=== PATIENT | male | born 1985 | race Hispanic/Latino ===

== ENCOUNTER 2023-05-09 19:41 | Emergency (ER) | payer BC, SELFPAY ==
[2023-05-09 20:29] LABS: #Basophils 0.06 10x3/uL (0.0-0.2); %Basophils 0.7 % (0.0-1.0); %Eosinophils 5.6 % (0.0-10.0); %Lymphocytes 33.5 % (21.0-51.0); %Monocytes 7.4 % (0.0-10.0); %Neutrophils 52.5 % (42.0-75.0); Hematocrit 41.9 % (42.0-52.0); Hemoglobin 14.1 g/dL (14.0-18.0); Mean Corpuscular HGB CONC 33.7 g/dL (32.0-36.0); Mean Corpuscular Hemoglobin 30.5 pg (27.0-31.0); Mean Corpuscular Volume 90.5 fL (78.0-98.0); Mean Platelet Volume 8.5 fL (7.4-10.4); Platelet Count 291 10x3/uL (130-400); RBC Distribution Width 13.2 % (11.5-14.5); Red Blood Cell (RBC) Count 4.63 mill/uL (4.70-6.10)
[2023-05-09 20:46] LABS: ALT (SGPT) 24 U/L (8-55); AST (SGOT) 21 U/L (5-34); Albumin 4.2 g/dL (3.5-5.0); Alkaline Phosphatase 83 U/L (40-110); Anion Gap 13 mmol/L (10-20); BUN (Urea Nitrogen) 13 mg/dL (8.9-20.6); Bilirubin, Total 0.3 mg/dL (0.2-1.2); Calc. Creatinine Clearance 0 mL/min (70-130); Calcium 9.5 mg/dL (7.8-10.44); Carbon Dioxide 22 mmol/L (22-29); Chloride 106 mmol/L (98-107); Estimated GFR 116; Globulin 3.2 g/dL (2.4-3.5); Glucose 115 mg/dL (70-105); Potassium 3.9 mmol/L (3.5-5.1); Protein, Total 7.4 g/dL (6.0-8.3); Sodium 137 mmol/L (136-145)
[2023-05-09 20:50] LABS: Troponin I Less than 0.010 ng/mL (< 0.028)
== END 2023-05-09 22:26 | disposition home or self-care (01) ==
LOC: ERS 19:41
DX: G56.02 Carpal tunnel syndrome, left upper limb (principal); F17.290 Nicotine dependence, other tobacco product, uncomplicated; F17.210 Nicotine dependence, cigarettes, uncomplicated
CPT/HCPCS: 70450; 80053; 83880; 84484; 85025; 93005

== ENCOUNTER 2023-10-28 06:35 | Inpatient (IN) | payer SELFPAY ==
[2023-10-28 07:15] LABS: #Basophils 0.04 10x3/uL (0.0-0.2); %Basophils 0.3 % (0.0-1.0); %Eosinophils 0.5 % (0.0-10.0); %Lymphocytes 10.5 % (21.0-51.0); %Monocytes 5.6 % (0.0-10.0); %Neutrophils 82.5 % (42.0-75.0); Hematocrit 39.4 % (42.0-52.0); Hemoglobin 12.9 g/dL (14.0-18.0); Mean Corpuscular HGB CONC 32.7 g/dL (32.0-36.0); Mean Corpuscular Hemoglobin 29.7 pg (27.0-31.0); Mean Corpuscular Volume 90.8 fL (78.0-98.0); Mean Platelet Volume 8.4 fL (7.4-10.4); Platelet Count 279 10x3/uL (130-400); RBC Distribution Width 12.9 % (11.5-14.5); Red Blood Cell (RBC) Count 4.34 mill/uL (4.70-6.10)
[2023-10-28] MEDS ORDERED: Aspirin 325 MG TAB ONE (07:25)
[2023-10-28 07:46] LABS: ALT (SGPT) 108 U/L (8-55); AST (SGOT) 113 U/L (5-34); Albumin 3.5 g/dL (3.5-5.0); Alkaline Phosphatase 82 U/L (40-110); Anion Gap 16 mmol/L (10-20); BUN (Urea Nitrogen) 12 mg/dL (8.9-20.6); Bilirubin, Total 0.6 mg/dL (0.2-1.2); Calc. Creatinine Clearance 0 mL/min (70-130); Calcium 8.9 mg/dL (7.8-10.44); Carbon Dioxide 19 mmol/L (22-29); Chloride 109 mmol/L (98-107); Estimated GFR 107; Globulin 3.3 g/dL (2.4-3.5); Glucose 113 mg/dL (70-105); Lipase 15 U/L (8-78); Magnesium 2.1 mg/dL (1.6-2.6); Potassium 4.4 mmol/L (3.5-5.1); Protein, Total 6.8 g/dL (6.0-8.3); Sodium 140 mmol/L (136-145)
[2023-10-28] MEDS ORDERED: Lorazepam 2 MG/ML VIAL ONE (09:16)
[2023-10-28 09:21] LABS: Influenza A by NAA Not Detected (NotDetected); Influenza B by NAA Not Detected (NotDetected); SARS-CoV-2 NAA Rapid Test Not Detected (NotDetected)
[2023-10-28] MEDS ORDERED: Iopamidol-370 76% 500 ML MDV (1 ML CHARGE) ONE (10:26)
[2023-10-28 11:41] LABS: Prothrombin Time 13.1 sec (12.0-14.7)
[2023-10-28 11:43] LABS: D-Dimer Test 1.09 mcg/mL (0.27-0.43)
[2023-10-28] MEDS ORDERED: Acetaminophen 325 MG TAB PO PRN (11:51)
[2023-10-28] MEDS ORDERED: Communication Order-Pharmacy FS PRN (11:52)
[2023-10-28] MEDS ORDERED: Heparin 5,000 UNITS/ML VIAL ONE (11:53)
[2023-10-28] MEDS ORDERED: Heparin 25,000 units/D5W 0 ML ONE (11:53)
[2023-10-28] MEDS ORDERED: Heparin 10,000 UNITS/ 10 ML VIAL SLOW IVP SCH (12:00)
[2023-10-28] MEDS ORDERED: Heparin 25,000 units/D5W 500 ML IVPB SCH (12:00)
[2023-10-28] MEDS ORDERED: Labetalol HCl 100 MG/20 ML VIAL SLOW IVP PRN (12:06)
[2023-10-28] MEDS ORDERED: Enoxaparin 60 MG (0.6 mL) SYRINGE ONE (13:01)
[2023-10-28 14:03] LABS: Cardiolipin IgA Ab 2.9 APL-U/mL (<14 Negative); Cardiolipin IgG Ab 2.5 GPL-U/mL (<10 Negative); Cardiolipin IgM Ab 2.2 MPL-U/mL (<10 Negative); EliA APS New Method **** NEW METHOD ****
[2023-10-28] MEDS ORDERED: Ipratropium Bromide 2.5 ml Neb NEB PRN (14:08)
[2023-10-28] MEDS ORDERED: Ondansetron ODT 4 MG TAB PO PRN (17:57)
[2023-10-28] MEDS ORDERED: Lorazepam 2 MG/ML VIAL IM PRN (17:57)
[2023-10-28] MEDS ORDERED: Lorazepam 1 MG TAB PO PRN (18:00)
[2023-10-28] MEDS ORDERED: Electrolyte Replacement Protocol 1 EACH FS SCH (18:00)
[2023-10-28] MEDS ORDERED: Dexmedetomidine In 0.9 % NaCl 100 ML IVPB SCH (18:00)
[2023-10-28] MEDS: Dexmedetomidine In 0.9 % NaCl 100 ML IV SCH (18:15)
[2023-10-28] MEDS: Thiamine HCl 200 MG/2 ML VIAL SLOW IVP SCH (18:19)
[2023-10-28] MEDS: Lorazepam 1 MG TAB PO SCH (18:19)
[2023-10-28 18:23] LABS: Actual Bicarbonate (HCO3a) 22.7 mEq/L (22-28); Base Excess (BEa) -2.9 mEq/L (-2.0 to +3.0); CO2 Tension 42.2 mmHg (35.0-45.0); Calcium, Ionized (arterial) 1.18 mmol/L (1.12-1.30); Carboxyhemoglobin (COHb) 0.4 gm% (0.0-3.0); Hematocrit-ABG 38 % (42.0-52.0); Hemoglobin (Hb) 12.9 g/dL (14.0-18.0); O2 Tension (PaO2), arterial 95.5 mmHg (80.0-100.0); Potassium - ABG Lab 3.82 mmol/L (3.70-5.30); pH, Arterial 7.348 (7.35-7.45)
[2023-10-28 18:24] LABS: Puncture Site Right Radial artery
[2023-10-28] MEDS ORDERED: Thiamine 100 MG TAB PO SCH (21:00)
[2023-10-28] MEDS: Furosemide 20 MG (2 mL) VIAL SLOW IVP SCH (21:07)
[2023-10-28 22:38] LABS: Bacteria/HPF None Seen HPF (None Seen); Bilirubin Negative (Negative); Blood, Urine Negative (Negative); Clarity Clear (Clear); Glucose, Urine (Dipstick) Normal (Negative); Ketone, Urine Negative (Negative); Leukocyte 25 Leu/uL (Negative); Nitrite Negative (Negative); Protein, Urine (Dipstick) Negative (Neg-Trace); RBC/HPF 0-3 HPF (0-3); Squamous Epithelial 0-3 HPF (0-3); Urobilinogen Normal mg/dL (Less than 2); WBC/HPF 0-3 HPF (0-3)
[2023-10-28 22:43] LABS: Amphetamine Not Detected (NotDetected); Barbiturates Screen Not Detected (NotDetected); Benzodiazepine Screen Detected (NotDetected); Cocaine Metabolite Screen Detected (NotDetected); Methadone Not Detected (NotDetected); Methamphetamine Not Detected (NotDetected); Opiate Screen Not Detected (NotDetected); Oxycodone Screen Not Detected (NotDetected); Phencyclidine (PCP) Not Detected (NotDetected); THC/Cannabinoid Screen Detected (NotDetected); Tricyclic Screen Not Detected (NotDetected)
[2023-10-29] MEDS: Multivit, Therapeutic 1 TAB PO SCH (00:01)
[2023-10-29] MEDS: Famotidine 20 MG TAB PO SCH (00:01)
[2023-10-29] MEDS: Cyanocobalamin (Vitamin B-12) 1,000 MCG TAB PO SCH (00:01)
[2023-10-29] MEDS: Folic Acid 1 MG TAB PO SCH (00:01)
[2023-10-29] MEDS: Enoxaparin 120 MG/0.8 ML SYRINGE SC SCH ×2 (00:29→12:03)
[2023-10-29 05:06] LABS: Hematocrit 38.6 % (42.0-52.0); Hemoglobin 12.8 g/dL (14.0-18.0); Platelet Count 279 10x3/uL (130-400)
[2023-10-29 05:16] LABS: ALT (SGPT) 71 U/L (8-55); AST (SGOT) 31 U/L (5-34); Alkaline Phosphatase 77 U/L (40-110); Anion Gap 15 mmol/L (10-20); BUN (Urea Nitrogen) 13 mg/dL (8.9-20.6); Bilirubin, Total 1.4 mg/dL (0.2-1.2); Calc. Creatinine Clearance 196 mL/min (70-130); Calcium 8.5 mg/dL (7.8-10.44); Carbon Dioxide 20 mmol/L (22-29); Chloride 105 mmol/L (98-107); Estimated GFR 110; Globulin 3.4 g/dL (2.4-3.5); Glucose 139 mg/dL (70-105); Potassium 3.7 mmol/L (3.5-5.1); Protein, Total 6.4 g/dL (6.0-8.3); Sodium 136 mmol/L (136-145)
[2023-10-29] MEDS: Potassium Chloride 10 MEQ TAB PO SCH (08:37)
[2023-10-29] MEDS: Furosemide 20 MG (2 mL) VIAL SLOW IVP SCH ×2 (08:38→13:48)
[2023-10-29] MEDS: Magnesium 2 GM/50 ML(in water) 2 GM in Premix 1 BAG IVPB SCH (08:38)
[2023-10-29] MEDS ORDERED: Folic Acid 1 MG TAB PO SCH (09:00)
[2023-10-29] MEDS ORDERED: Multivit, Therapeutic 1 TAB PO SCH (09:00)
[2023-10-30 05:03] LABS: Hematocrit 38.2 % (42.0-52.0); Hemoglobin 12.5 g/dL (14.0-18.0); Mean Corpuscular HGB CONC 32.7 g/dL (32.0-36.0); Mean Corpuscular Hemoglobin 29.3 pg (27.0-31.0); Mean Corpuscular Volume 89.7 fL (78.0-98.0); Platelet Count 271 10x3/uL (130-400); Red Blood Cell (RBC) Count 4.26 mill/uL (4.70-6.10)
[2023-10-30 05:24] LABS: Anion Gap 12 mmol/L (10-20); BUN (Urea Nitrogen) 16 mg/dL (8.9-20.6); Calc. Creatinine Clearance 168 mL/min (70-130); Calcium 8.4 mg/dL (7.8-10.44); Carbon Dioxide 25 mmol/L (22-29); Chloride 104 mmol/L (98-107); Estimated GFR 92; Glucose 100 mg/dL (70-105); Sodium 137 mmol/L (136-145)
[2023-10-30] MEDS: Carvedilol 3.125 MG TAB PO SCH (08:30)
[2023-10-30] MEDS: Lorazepam 1 MG TAB PO PRN (08:48)
[2023-10-30] MEDS: Enoxaparin 120 MG/0.8 ML SYRINGE SC SCH (13:45)
[2023-10-30] MEDS: Acetaminophen 325 MG TAB PO PRN (13:59)
[2023-10-30] MEDS: Lorazepam 0.5 MG TAB PO SCH (17:35)
[2023-10-30] MEDS ORDERED: Lorazepam 1 MG TAB PO PRN (18:00)
[2023-10-30] MEDS: traMADol HCl 50 MG TAB PO PRN (20:08)
[2023-10-31 06:04] LABS: Hematocrit 37.9 % (42.0-52.0); Hemoglobin 12.6 g/dL (14.0-18.0); Platelet Count 261 10x3/uL (130-400)
[2023-10-31] MEDS ORDERED: Communication Order-Pharmacy FS SCH (07:39)
[2023-10-31] MEDS: Carvedilol 3.125 MG TAB PO SCH (08:32)
[2023-10-31] MEDS: Apixaban 5 MG TAB PO SCH (08:34)
[2023-10-31] MEDS ORDERED: Apixaban 5 MG TAB PO SCH (09:00)
[2023-10-31 09:05] LABS: Hematocrit 37.2 % (42.0-52.0); Hemoglobin 12.5 g/dL (14.0-18.0); Platelet Count 278 10x3/uL (130-400)
[2023-10-31] MEDS: Methocarbamol 500 MG TAB PO PRN (12:32)
[2023-10-31] MEDS ORDERED: Docusate 100 MG CAP PO PRN (14:48)
[2023-10-31] MEDS ORDERED: Polyethylene Glycol 3350 17 GM Packet PO PRN (14:48)
[2023-10-31] MEDS: Thiamine 100 MG TAB PO SCH (17:13)
[2023-10-31] MEDS ORDERED: Lorazepam 0.5 MG TAB PO PRN (18:00)
[2023-10-31 18:30] VITALS: BMI 37.6
[2023-11-01 04:39] LABS: Cardiac Risk 4.4 (Less than 4.5)
[2023-11-01] MEDS: traZODone HCl 50 MG TAB PO PRN (04:57)
[2023-11-01] MEDS: Furosemide 40 MG TAB PO SCH (09:26)
[2023-11-01] MEDS: Potassium Chloride 10 MEQ TAB PO SCH (09:27)
[2023-11-01] MEDS ORDERED: Albuterol 2.5 MG (3 mL) NEB NEB PRN (11:02)
[2023-11-01 12:57] VITALS: BP 126/88; TEMP 97.9
[2023-11-03 17:38] LABS: Activated Protein C Resistance 2.5 ratio (.)
[2023-11-07] MEDS ORDERED: Apixaban 5 MG TAB PO SCH (09:00)
== END 2023-11-01 17:47 | disposition home or self-care (01) | DRG 175 ==
LOC: ERS 06:35 → ERHOLD 11:15 → IMCU/EMU 16:43 → 2SW 10-31 13:24
PROVIDERS: ADMIT Internal Medicine; ATTEND Internal Medicine
PROC: 4A033R1 Measurement of Arterial Saturation, Peripheral, Percutaneous Approach (ICD-10-PCS; principal; 2023-10-28)
PROC: 5A0945A Assistance with Respiratory Ventilation, 24-96 Consecutive Hours, High Flow/Velocity Cannula (ICD-10-PCS; 2023-10-28)
DX: I26.99 Other pulmonary embolism without acute cor pulmonale (principal); I50.23 Acute on chronic systolic (congestive) heart failure; J96.01 Acute respiratory failure with hypoxia; I42.0 Dilated cardiomyopathy; F19.10 Other psychoactive substance abuse, uncomplicated; Z88.0 Allergy status to penicillin; F17.290 Nicotine dependence, other tobacco product, uncomplicated; Z90.89 Acquired absence of other organs; Z82.49 Family history of ischemic heart disease and other diseases of the circulatory system; E66.01 Morbid (severe) obesity due to excess calories; Z68.37 Body mass index [BMI] 37.0-37.9, adult; F14.10 Cocaine abuse, uncomplicated; F10.20 Alcohol dependence, uncomplicated; Z79.01 Long term (current) use of anticoagulants; I34.0 Nonrheumatic mitral (valve) insufficiency
CPT/HCPCS: 36415; 36600; 71045; 71275; 80048; 80053; 80061; 80306; 81001; 82805; 83090; 83690; 83735; 83880; 84484; 85014; 85018; 85025; 85027; 85049; 85300; 85303; 85306; 85307; 85598; 86147; 87040; 93005; 93306; 93970; 94760; 96374; J1644; J1650; J1940; J2060; J3411; J3475; Q9967

== ENCOUNTER 2023-11-03 03:05 | Inpatient (IN) | payer OTHER, SELFPAY ==
[2023-11-03 03:34] LABS: #Basophils 0.03 10x3/uL (0.0-0.2); %Basophils 0.3 % (0.0-1.0); %Lymphocytes 12.9 % (21.0-51.0); %Monocytes 7.3 % (0.0-10.0); Hematocrit 35.4 % (42.0-52.0); Mean Corpuscular HGB CONC 33.9 g/dL (32.0-36.0); Mean Corpuscular Hemoglobin 29.6 pg (27.0-31.0); Mean Corpuscular Volume 87.2 fL (78.0-98.0); Mean Platelet Volume 8.6 fL (7.4-10.4); Platelet Count 279 10x3/uL (130-400); RBC Distribution Width 12.8 % (11.5-14.5); Red Blood Cell (RBC) Count 4.06 mill/uL (4.70-6.10)
[2023-11-03 03:50] LABS: ALT (SGPT) 41 U/L (8-55); AST (SGOT) 28 U/L (5-34); Albumin 3.3 g/dL (3.5-5.0); Alkaline Phosphatase 63 U/L (40-110); Anion Gap 14 mmol/L (10-20); BUN (Urea Nitrogen) 17 mg/dL (8.9-20.6); Bilirubin, Total 0.7 mg/dL (0.2-1.2); Calc. Creatinine Clearance 0 mL/min (70-130); Calcium 8.9 mg/dL (7.8-10.44); Carbon Dioxide 22 mmol/L (22-29); Chloride 104 mmol/L (98-107); Estimated GFR 97; Globulin 3.8 g/dL (2.4-3.5); Glucose 139 mg/dL (70-105); Protein, Total 7.1 g/dL (6.0-8.3); Sodium 136 mmol/L (136-145)
[2023-11-03] MEDS ORDERED: Lorazepam 2 MG/ML VIAL ONE (03:53)
[2023-11-03 03:54] LABS: Troponin I 0.027 ng/mL (< 0.028)
[2023-11-03 05:04] LABS: Actual Bicarbonate (HCO3v) 20.1 mEq/L (22-28); Base Excess -3.9 mEq/L (-2.0 to +3.0); Calcium, Ionized (venous) 1.13 mmol/L (1.16-1.32); Chloride (VBG) 101 mmol/L (98-106); Hematocrit-VBG 36 % (42.0-52.0); Hemoglobin (Hb) 12.4 g/dL (13.2-17.3); Potassium (VBG) 4.07 mmol/L (3.70-5.30); Sodium 135 mmol/L (133-146); pH (venous) 7.403 (7.32-7.43)
[2023-11-03] MEDS ORDERED: Sodium Chloride 0.9% 100 ML ONE (05:35)
[2023-11-03] MEDS ORDERED: Cefepime 2 GM VIAL ONE (05:35)
[2023-11-03 05:38] LABS: Bacteria/HPF None Seen HPF (None Seen); Bilirubin Negative (Negative); Blood, Urine Negative (Negative); CAUTI Indications for Culture Alt mental st,lethar; Clarity Clear (Clear); Glucose, Urine (Dipstick) Normal (Negative); Ketone, Urine Negative (Negative); Leukocyte Negative Leu/uL (Negative); Nitrite Negative (Negative); Protein, Urine (Dipstick) Negative (Neg-Trace); RBC/HPF 0-3 HPF (0-3); Specific Gravity, Urine 1.027 (1.002-1.036); Squamous Epithelial 0-3 HPF (0-3); Urobilinogen Normal mg/dL (Less than 2); WBC/HPF 0-3 HPF (0-3)
[2023-11-03 05:46] LABS: Amphetamine Not Detected (NotDetected); Barbiturates Screen Not Detected (NotDetected); Benzodiazepine Screen Not Detected (NotDetected); Cocaine Metabolite Screen Not Detected (NotDetected); Methadone Not Detected (NotDetected); Methamphetamine Not Detected (NotDetected); Opiate Screen Not Detected (NotDetected); Oxycodone Screen Not Detected (NotDetected); Phencyclidine (PCP) Not Detected (NotDetected); THC/Cannabinoid Screen Detected (NotDetected); Tricyclic Screen Not Detected (NotDetected)
[2023-11-03 05:49] LABS: Urine Culture Reflex No No
[2023-11-03] MEDS ORDERED: Furosemide 20 MG (2 mL) VIAL ONE (06:18)
[2023-11-03 06:41] LABS: SARS-CoV-2 E Target Negative; SARS-CoV-2 N2 Target Negative; SARS-CoV-2 NAA Rapid Test Not Detected (NotDetected); SARS-CoV-2 RdRP gene Negative
[2023-11-03 07:30] LABS: Troponin I 0.011 ng/mL (< 0.028)
[2023-11-03] MEDS ORDERED: Acetaminophen 325 MG TAB PO PRN (08:06)
[2023-11-03] MEDS ORDERED: Calcium Carbonate 500 MG ChewTAB PO PRN (08:06)
[2023-11-03] MEDS: Vancomycin (BATCH) 2.5 GM in Premix 1 BAG IVPB SCH (08:50)
[2023-11-03 09:00] LABS: Magnesium 2.1 mg/dL (1.6-2.6)
[2023-11-03] MEDS ORDERED: Vancomycin 1 GM in Premix 1 BAG IVPB SCH (09:00)
[2023-11-03] MEDS ORDERED: Pharmacy to Dose: CEFEPIME IVPB PRN (09:15)
[2023-11-03] MEDS: Potassium Chloride 20 MEQ TAB PO SCH (09:44)
[2023-11-03] MEDS: Senokot S 8.6-50 MG TAB PO SCH (09:45)
[2023-11-03] MEDS: Apixaban 5 MG TAB PO SCH (09:45)
[2023-11-03] MEDS: guaiFENesin ER 600 MG TAB PO SCH (09:45)
[2023-11-03] MEDS: Famotidine 20 MG TAB PO SCH (09:45)
[2023-11-03] MEDS ORDERED: Iopamidol 370 76% 100 ML VIAL ONE (10:43)
[2023-11-03 11:48] LABS: Troponin I Less than 0.010 ng/mL (< 0.028)
[2023-11-03] MEDS ORDERED: Furosemide 40 MG (4 mL) VIAL SLOW IVP SCH (14:00)
[2023-11-03] MEDS: Furosemide 20 MG (2 mL) VIAL SLOW IVP SCH (15:45)
[2023-11-03] MEDS: Cefepime 2 GM in Sodium Chloride 0.9% 100 ML IVPB SCH (15:45)
[2023-11-03] MEDS: Carvedilol 3.125 MG TAB PO SCH (17:16)
[2023-11-03] MEDS: Vancomycin (BATCH) 1.25 GM in Premix 1 BAG IVPB SCH (17:47)
[2023-11-03 17:55] LABS: Amphetamine Not Detected (NotDetected); Barbiturates Screen Not Detected (NotDetected); Benzodiazepine Screen Detected (NotDetected); Cocaine Metabolite Screen Not Detected (NotDetected); Methadone Not Detected (NotDetected); Methamphetamine Not Detected (NotDetected); Opiate Screen Not Detected (NotDetected); Oxycodone Screen Not Detected (NotDetected); Phencyclidine (PCP) Not Detected (NotDetected); THC/Cannabinoid Screen Detected (NotDetected); Tricyclic Screen Not Detected (NotDetected)
[2023-11-03] MEDS: Multivit, Therapeutic 1 TAB PO SCH (20:29)
[2023-11-03] MEDS: Folic Acid 1 MG TAB PO SCH (20:29)
[2023-11-03] MEDS: Thiamine 100 MG TAB PO SCH (20:29)
[2023-11-03] MEDS: Melatonin 3 MG TAB PO SCH (23:26)
[2023-11-04] MEDS: Lorazepam 2 MG/ML VIAL SLOW IVP SCH (02:05)
[2023-11-04] MEDS ORDERED: Lorazepam 2 MG/ML VIAL SLOW IVP PRN (02:44)
[2023-11-04] MEDS ORDERED: Lorazepam 2 MG/ML VIAL SLOW IVP SCH ×2 (02:45)
[2023-11-04] MEDS: Dexmedetomidine In 0.9 % NaCl 100 ML IVPB SCH (03:18)
[2023-11-04] MEDS: Potassium Chloride 20 MEQ TAB PO SCH (09:21)
[2023-11-04 10:53] LABS: #Basophils 0.03 10x3/uL (0.0-0.2); %Basophils 0.4 % (0.0-1.0); %Eosinophils 3.3 % (0.0-10.0); %Lymphocytes 18.8 % (21.0-51.0); %Neutrophils 66.9 % (42.0-75.0); Hematocrit 38.1 % (42.0-52.0); Hemoglobin 12.1 g/dL (14.0-18.0); Mean Corpuscular HGB CONC 31.8 g/dL (32.0-36.0); Mean Corpuscular Hemoglobin 29.5 pg (27.0-31.0); Mean Corpuscular Volume 92.9 fL (78.0-98.0); Mean Platelet Volume 8.7 fL (7.4-10.4); Platelet Count 272 10x3/uL (130-400); RBC Distribution Width 13.2 % (11.5-14.5)
[2023-11-04 11:15] LABS: ALT (SGPT) 35 U/L (8-55); AST (SGOT) 20 U/L (5-34); Alkaline Phosphatase 60 U/L (40-110); Anion Gap 10 mmol/L (10-20); BUN (Urea Nitrogen) 16 mg/dL (8.9-20.6); Bilirubin, Total 0.8 mg/dL (0.2-1.2); Calc. Creatinine Clearance 177 mL/min (70-130); Calcium 8.9 mg/dL (7.8-10.44); Carbon Dioxide 24 mmol/L (22-29); Chloride 105 mmol/L (98-107); Estimated GFR 98; Globulin 3.7 g/dL (2.4-3.5); Glucose 103 mg/dL (70-105); Magnesium 2.3 mg/dL (1.6-2.6); Potassium 3.9 mmol/L (3.5-5.1); Protein, Total 6.7 g/dL (6.0-8.3); Sodium 135 mmol/L (136-145)
[2023-11-04 11:17] LABS: Vancomycin, Random 11.3 ug/mL (See Comment)
[2023-11-04] MEDS: Diclofenac 1% 50 GM TOPICAL GEL TP PRN (11:54)
[2023-11-04 21:42] VITALS: BMI 37.8
[2023-11-05 05:50] LABS: Anion Gap 12 mmol/L (10-20); BUN (Urea Nitrogen) 20 mg/dL (8.9-20.6); Calc. Creatinine Clearance 181 mL/min (70-130); Calcium 8.8 mg/dL (7.8-10.44); Carbon Dioxide 24 mmol/L (22-29); Chloride 105 mmol/L (98-107); Estimated GFR 99; Glucose 121 mg/dL (70-105); Potassium 4.1 mmol/L (3.5-5.1); Sodium 137 mmol/L (136-145)
[2023-11-05] MEDS ORDERED: Potassium Chloride 20 MEQ TAB PO SCH (09:37)
[2023-11-05] MEDS: Carvedilol 3.125 MG TAB PO SCH (09:53)
[2023-11-05] MEDS: Spironolactone 25 MG TAB PO SCH (09:53)
[2023-11-05] MEDS: Carvedilol 6.25 MG TAB PO SCH (16:17)
[2023-11-05] MEDS: Zolpidem Tartrate 5 MG TAB PO PRN (23:40)
[2023-11-06 06:19] LABS: Anion Gap 11 mmol/L (10-20); BUN (Urea Nitrogen) 21 mg/dL (8.9-20.6); Calc. Creatinine Clearance 175 mL/min (70-130); Calcium 9.1 mg/dL (7.8-10.44); Carbon Dioxide 26 mmol/L (22-29); Chloride 106 mmol/L (98-107); Estimated GFR 99; Glucose 124 mg/dL (70-105); Potassium 3.9 mmol/L (3.5-5.1); Sodium 139 mmol/L (136-145)
[2023-11-06] MEDS: Spironolactone 25 MG TAB PO SCH (09:06)
[2023-11-06] MEDS: Potassium Chloride 10 MEQ TAB PO SCH (09:07)
[2023-11-06] MEDS: Lisinopril 2.5 MG TAB PO SCH (09:08)
[2023-11-06 12:59] VITALS: BP 114/67; TEMP 98.1
[2023-11-07] MEDS ORDERED: Apixaban 5 MG TAB PO SCH (09:00)
== END 2023-11-06 13:22 | disposition home or self-care (01) | DRG 193 ==
LOC: ERS 03:05 → IMCU/EMU 07:47 → 2SW 11-04 21:23
PROVIDERS: ADMIT Student in an Organized Health Care Education/Training Program; ATTEND Internal Medicine
DX: J18.9 Pneumonia, unspecified organism (principal); G92.8 Other toxic encephalopathy; I50.23 Acute on chronic systolic (congestive) heart failure; I42.8 Other cardiomyopathies; I42.0 Dilated cardiomyopathy; G47.33 Obstructive sleep apnea (adult) (pediatric); E66.9 Obesity, unspecified; G47.00 Insomnia, unspecified; Z86.711 Personal history of pulmonary embolism; Z88.0 Allergy status to penicillin; Z79.01 Long term (current) use of anticoagulants; Z79.899 Other long term (current) drug therapy; Z68.36 Body mass index [BMI] 36.0-36.9, adult; F14.10 Cocaine abuse, uncomplicated; F10.10 Alcohol abuse, uncomplicated; F41.9 Anxiety disorder, unspecified
CPT/HCPCS: 36415; 36416; 71045; 71275; 80048; 80053; 80202; 80306; 81001; 82805; 83605; 83735; 83880; 84145; 84484; 85025; 87040; 87081; 93005; 93798; 96374; 96375; J0692; J1940; J2060; J3370; Q9967; U0002

== ENCOUNTER 2023-11-12 02:43 | Observation (INO) | payer OTHER ==
[2023-11-12 03:24] LABS: #Basophils 0.06 10x3/uL (0.0-0.2); %Basophils 0.6 % (0.0-1.0); %Eosinophils 2.9 % (0.0-10.0); %Lymphocytes 24.8 % (21.0-51.0); %Monocytes 6.2 % (0.0-10.0); %Neutrophils 64.9 % (42.0-75.0); Hematocrit 35.4 % (42.0-52.0); Hemoglobin 11.6 g/dL (14.0-18.0); Mean Corpuscular HGB CONC 32.8 g/dL (32.0-36.0); Mean Corpuscular Hemoglobin 29.4 pg (27.0-31.0); Mean Corpuscular Volume 89.6 fL (78.0-98.0); Mean Platelet Volume 8.4 fL (7.4-10.4); Platelet Count 344 10x3/uL (130-400); RBC Distribution Width 12.7 % (11.5-14.5); Red Blood Cell (RBC) Count 3.95 mill/uL (4.70-6.10)
[2023-11-12 03:40] LABS: ALT (SGPT) 51 U/L (8-55); AST (SGOT) 38 U/L (5-34); Albumin 3.4 g/dL (3.5-5.0); Alkaline Phosphatase 60 U/L (40-110); Anion Gap 16 mmol/L (10-20); BUN (Urea Nitrogen) 23 mg/dL (8.9-20.6); Bilirubin, Total 0.5 mg/dL (0.2-1.2); Calc. Creatinine Clearance 0 mL/min (70-130); Calcium 8.9 mg/dL (7.8-10.44); Carbon Dioxide 19 mmol/L (22-29); Chloride 109 mmol/L (98-107); Estimated GFR 86; Globulin 3.1 g/dL (2.4-3.5); Glucose 114 mg/dL (70-105); Potassium 4.5 mmol/L (3.5-5.1); Protein, Total 6.5 g/dL (6.0-8.3); Sodium 139 mmol/L (136-145)
[2023-11-12 04:03] LABS: Troponin I 0.011 ng/mL (< 0.028)
[2023-11-12 04:39] LABS: INR-International Normal Ratio 1.1; Prothrombin Time 14.5 sec (12.0-14.7)
[2023-11-12 04:40] LABS: PTT 33.9 sec (22.9-36.1)
[2023-11-12] MEDS ORDERED: Furosemide 40 MG (4 mL) VIAL ONE (04:53)
[2023-11-12] MEDS ORDERED: Sodium Chloride 0.9% 100 ML ONE (05:10)
[2023-11-12] MEDS ORDERED: Cefepime 2 GM VIAL ONE (05:10)
[2023-11-12] MEDS ORDERED: Vancomycin HCl 500 MG VIAL ONE (05:22)
[2023-11-12] MEDS ORDERED: Lorazepam 2 MG/ML VIAL ONE (06:03)
[2023-11-12 07:50] LABS: Troponin I Less than 0.010 ng/mL (< 0.028)
[2023-11-12] MEDS: Vancomycin (BATCH) 2.5 GM in Premix 1 BAG IVPB SCH (08:46)
[2023-11-12] MEDS ORDERED: Guaifenesin DM 100-10/5 ML UDCUP PO PRN (08:47)
[2023-11-12] MEDS ORDERED: Vancomycin 1 GM in Sodium Chloride 0.9% 250 ML 250 ML IVPB SCH (09:00)
[2023-11-12] MEDS ORDERED: Iopamidol 370 76% 100 ML VIAL ONE (09:03)
[2023-11-12 09:34] LABS: Magnesium 2.2 mg/dL (1.6-2.6)
[2023-11-12 09:44] VITALS: BP 107/78; TEMP 98.5
[2023-11-12] MEDS: Azithromycin 250 MG TAB PO SCH (11:48)
[2023-11-12] MEDS ORDERED: Thiamine 100 MG TAB ONE (12:04)
[2023-11-12] MEDS ORDERED: Apixaban 5 MG TAB ONE (12:04)
[2023-11-12] MEDS: Apixaban 5 MG TAB PO SCH (12:47)
[2023-11-12] MEDS: Thiamine 100 MG TAB PO SCH (12:47)
[2023-11-12 12:48] VITALS: BMI 35.9
[2023-11-12] MEDS ORDERED: Furosemide 40 MG (4 mL) VIAL SLOW IVP SCH (14:00)
[2023-11-12] MEDS ORDERED: Cefepime 2 GM in Sodium Chloride 0.9% 100 ML IVPB SCH (17:00)
[2023-11-12] MEDS ORDERED: Carvedilol 6.25 MG TAB PO SCH (17:00)
[2023-11-12] MEDS ORDERED: Folic Acid 1 MG TAB PO SCH (21:00)
[2023-11-13] MEDS ORDERED: Spironolactone 25 MG TAB PO SCH (08:00)
[2023-11-13] MEDS ORDERED: Azithromycin 250 MG TAB PO SCH (09:00)
== END 2023-11-12 12:57 | disposition home or self-care (01) ==
LOC: ERS 02:43 → ERHOLD 05:39
PROVIDERS: ADMIT Internal Medicine; ATTEND Internal Medicine
DX: J96.02 Acute respiratory failure with hypercapnia (principal); J18.9 Pneumonia, unspecified organism; F19.90 Other psychoactive substance use, unspecified, uncomplicated; I26.99 Other pulmonary embolism without acute cor pulmonale; I50.20 Unspecified systolic (congestive) heart failure; E66.9 Obesity, unspecified; R01.1 Cardiac murmur, unspecified; F14.10 Cocaine abuse, uncomplicated; F12.10 Cannabis abuse, uncomplicated; I50.23 Acute on chronic systolic (congestive) heart failure; Z79.01 Long term (current) use of anticoagulants; Z68.37 Body mass index [BMI] 37.0-37.9, adult; Z90.89 Acquired absence of other organs; Z88.0 Allergy status to penicillin; Z79.899 Other long term (current) drug therapy; Z79.51 Long term (current) use of inhaled steroids
CPT/HCPCS: 36415; 71045; 71275; 80053; 83605; 83735; 83880; 84484; 85025; 85610; 85730; 87040; 93005; 94760; G0378; J0692; J1940; J2060; J3370; Q9967

== ENCOUNTER 2023-11-17 06:29 | Inpatient (IN) | payer OTHER ==
[2023-11-17 07:05] LABS: #Basophils 0.05 10x3/uL (0.0-0.2); %Basophils 0.5 % (0.0-1.0); %Eosinophils 1.5 % (0.0-10.0); %Lymphocytes 19.9 % (21.0-51.0); %Monocytes 5.9 % (0.0-10.0); %Neutrophils 71.8 % (42.0-75.0); Hematocrit 35.8 % (42.0-52.0); Hemoglobin 11.6 g/dL (14.0-18.0); Mean Corpuscular HGB CONC 32.4 g/dL (32.0-36.0); Mean Corpuscular Hemoglobin 28.3 pg (27.0-31.0); Mean Corpuscular Volume 87.3 fL (78.0-98.0); Mean Platelet Volume 8.9 fL (7.4-10.4); Platelet Count 303 10x3/uL (130-400); RBC Distribution Width 12.8 % (11.5-14.5)
[2023-11-17 07:30] LABS: ALT (SGPT) 58 U/L (8-55); AST (SGOT) 37 U/L (5-34); Albumin 3.4 g/dL (3.5-5.0); Alkaline Phosphatase 63 U/L (40-110); Anion Gap 15 mmol/L (10-20); BUN (Urea Nitrogen) 21 mg/dL (8.9-20.6); Bilirubin, Total 0.7 mg/dL (0.2-1.2); Calc. Creatinine Clearance 0 mL/min (70-130); Calcium 8.8 mg/dL (7.8-10.44); Carbon Dioxide 23 mmol/L (22-29); Chloride 105 mmol/L (98-107); Estimated GFR 89; Globulin 3.4 g/dL (2.4-3.5); Glucose 99 mg/dL (70-105); Potassium 4.3 mmol/L (3.5-5.1); Protein, Total 6.8 g/dL (6.0-8.3); Sodium 139 mmol/L (136-145)
[2023-11-17 07:33] LABS: INR-International Normal Ratio 1.2; Prothrombin Time 15.1 sec (12.0-14.7)
[2023-11-17 07:34] LABS: PTT 35.6 sec (22.9-36.1)
[2023-11-17 07:38] LABS: Troponin I Less than 0.010 ng/mL (< 0.028)
[2023-11-17 07:50] LABS: Acetaminophen Less than 10 mcg/mL (Less than 10); Alcohol Less than 10.0 mg/dL (Less than 10); Salicylate Less than 8.0 mg/dL (Less than 8.0)
[2023-11-17] MEDS ORDERED: Morphine 4 MG/ML VIAL ONE (07:51)
[2023-11-17] MEDS ORDERED: Ondansetron PF 4 MG/2 ML Vial ONE (07:52)
[2023-11-17] MEDS ORDERED: hydrOXYzine 25 MG TAB ONE (07:52)
[2023-11-17 09:29] LABS: Bacteria/HPF None Seen HPF (None Seen); Bilirubin Negative (Negative); Blood, Urine Negative (Negative); CAUTI Indications for Culture Acute Hematuria; Clarity Clear (Clear); Glucose, Urine (Dipstick) Normal (Negative); Ketone, Urine Negative (Negative); Leukocyte Negative Leu/uL (Negative); Nitrite Negative (Negative); Protein, Urine (Dipstick) 10 mg/dL (Neg-Trace); RBC/HPF 0-3 HPF (0-3); Squamous Epithelial 0-3 HPF (0-3); Urobilinogen Normal mg/dL (Less than 2); WBC/HPF 0-3 HPF (0-3); pH, Urine 6.5 (5.0-9.0)
[2023-11-17] MEDS ORDERED: Iopamidol-370 76% 500 ML MDV (1 ML CHARGE) ONE (09:35)
[2023-11-17] MEDS ORDERED: Calcium Carbonate 500 MG ChewTAB PO PRN (09:35)
[2023-11-17] MEDS ORDERED: Senokot S 8.6-50 MG TAB PO PRN (09:35)
[2023-11-17] MEDS ORDERED: Ondansetron ODT 4 MG TAB PO PRN (09:35)
[2023-11-17] MEDS ORDERED: Ondansetron PF 4 MG/2 ML Vial IVP PRN (09:35)
[2023-11-17 09:38] LABS: Amphetamine Not Detected (NotDetected); Barbiturates Screen Not Detected (NotDetected); Benzodiazepine Screen Not Detected (NotDetected); Cocaine Metabolite Screen Not Detected (NotDetected); Methadone Not Detected (NotDetected); Methamphetamine Not Detected (NotDetected); Opiate Screen Not Detected (NotDetected); Oxycodone Screen Not Detected (NotDetected); Phencyclidine (PCP) Not Detected (NotDetected); THC/Cannabinoid Screen Detected (NotDetected); Tricyclic Screen Not Detected (NotDetected)
[2023-11-17] MEDS ORDERED: Cefepime 2 GM VIAL ONE (09:43)
[2023-11-17] MEDS ORDERED: Lactulose 20 GM (30 mL) UDCUP ONE (09:43)
[2023-11-17] MEDS ORDERED: LevoFLOXacin 750 mg/D5W 150 ml Premix Bag ONE (09:43)
[2023-11-17 09:51] LABS: Specific Gravity, Urine 1.044 (1.002-1.036)
[2023-11-17 09:52] LABS: Urine Culture Reflex No No
[2023-11-17] MEDS: Meropenem 1 GM in Sodium Chloride 0.9% 100 ML IVPB SCH ×2 (11:57→20:33)
[2023-11-17 12:06] VITALS: BMI 36.4
[2023-11-17] MEDS: Vancomycin (BATCH) 2.5 GM in Premix 1 BAG IVPB SCH (15:15)
[2023-11-17] MEDS: Furosemide 40 MG (4 mL) VIAL SLOW IVP SCH (16:19)
[2023-11-17] MEDS: Carvedilol 6.25 MG TAB PO SCH (17:07)
[2023-11-17] MEDS: Apixaban 5 MG TAB PO SCH (20:34)
[2023-11-18] MEDS: traZODone HCl 50 MG TAB PO PRN (00:51)
[2023-11-18 04:54] LABS: #Basophils 0.07 10x3/uL (0.0-0.2); %Basophils 0.7 % (0.0-1.0); %Eosinophils 2.5 % (0.0-10.0); %Lymphocytes 12.9 % (21.0-51.0); %Monocytes 6.8 % (0.0-10.0); %Neutrophils 76.6 % (42.0-75.0); Hematocrit 36.5 % (42.0-52.0); Hemoglobin 11.4 g/dL (14.0-18.0); Mean Corpuscular HGB CONC 31.2 g/dL (32.0-36.0); Mean Corpuscular Hemoglobin 28.5 pg (27.0-31.0); Mean Corpuscular Volume 91.3 fL (78.0-98.0); Mean Platelet Volume 8.7 fL (7.4-10.4); Platelet Count 292 10x3/uL (130-400); RBC Distribution Width 12.6 % (11.5-14.5)
[2023-11-18 05:49] LABS: ALT (SGPT) 49 U/L (8-55); AST (SGOT) 24 U/L (5-34); Albumin 3.1 g/dL (3.5-5.0); Alkaline Phosphatase 66 U/L (40-110); Anion Gap 14 mmol/L (10-20); BUN (Urea Nitrogen) 18 mg/dL (8.9-20.6); Bilirubin, Total 0.9 mg/dL (0.2-1.2); Calc. Creatinine Clearance 163 mL/min (70-130); Calcium 8.5 mg/dL (7.8-10.44); Carbon Dioxide 21 mmol/L (22-29); Chloride 106 mmol/L (98-107); Estimated GFR 92; Globulin 3.2 g/dL (2.4-3.5); Glucose 112 mg/dL (70-105); Magnesium 2.3 mg/dL (1.6-2.6); Potassium 4.2 mmol/L (3.5-5.1); Protein, Total 6.3 g/dL (6.0-8.3); Sodium 137 mmol/L (136-145)
[2023-11-18] MEDS: Spironolactone 25 MG TAB PO SCH ×2 (09:27→18:20)
[2023-11-18] MEDS: Thiamine 100 MG TAB PO SCH (09:27)
[2023-11-18] MEDS: Lisinopril 2.5 MG TAB PO SCH (09:27)
[2023-11-18] MEDS: Azithromycin 500 MG in Sodium Chloride 0.9% 250 ML 250 ML IVPB SCH (09:29)
[2023-11-18] MEDS: Magnesium 2 GM/50 ML(in water) 2 GM in Premix 1 BAG IVPB SCH (15:09)
[2023-11-18] MEDS: guaiFENesin ER 600 MG TAB PO SCH ×2 (15:09→21:23)
[2023-11-18] MEDS: Empagliflozin 10 MG TAB PO SCH (15:09)
[2023-11-19 04:55] LABS: Anion Gap 13 mmol/L (10-20); BUN (Urea Nitrogen) 25 mg/dL (8.9-20.6); Calc. Creatinine Clearance 131 mL/min (70-130); Carbon Dioxide 25 mmol/L (22-29); Chloride 108 mmol/L (98-107); Estimated GFR 71; Glucose 110 mg/dL (70-105); Magnesium 2.3 mg/dL (1.6-2.6); Potassium 3.9 mmol/L (3.5-5.1); Sodium 142 mmol/L (136-145)
[2023-11-19] MEDS ORDERED: FLU (Fluarix Triv) TS24-25(6MOS UP)/PF 45 MCG/0.5 ML Syringe IM ONE (09:00)
[2023-11-19] MEDS: Empagliflozin 10 MG TAB PO SCH (09:59)
[2023-11-19] MEDS: Furosemide 20 MG (2 mL) VIAL SLOW IVP SCH (15:10)
[2023-11-19] MEDS: Cefdinir 300 MG CAP PO SCH (20:53)
[2023-11-20 01:00] LABS: Actual Bicarbonate (HCO3v) 22.9 mEq/L (22-28); Base Excess -2.2 mEq/L (-2.0 to +3.0); Calcium, Ionized (venous) 1.16 mmol/L (1.16-1.32); Chloride (VBG) 104 mmol/L (98-106); Hematocrit-VBG 37 % (42.0-52.0); Hemoglobin (Hb) 12.6 g/dL (13.2-17.3); Potassium (VBG) 4.38 mmol/L (3.70-5.30)
[2023-11-20 01:46] LABS: Albumin 3.2 g/dL (3.5-5.0); Anion Gap 13 mmol/L (10-20); BUN (Urea Nitrogen) 22 mg/dL (8.9-20.6); BUN/Creatinine Ratio 21.15; Calc. Creatinine Clearance 166 mL/min (70-130); Carbon Dioxide 24 mmol/L (22-29); Chloride 109 mmol/L (98-107); Estimated GFR 95; Glucose 113 mg/dL (70-105); Phosphorus 4.8 mg/dL (2.3-4.7); Potassium 4.3 mmol/L (3.5-5.1); Sodium 142 mmol/L (136-145)
[2023-11-20 01:47] LABS: Acetaminophen Less than 10 mcg/mL (Less than 10); Alcohol Less than 10.0 mg/dL (Less than 10); Salicylate Less than 8.0 mg/dL (Less than 8.0)
[2023-11-20 01:54] LABS: Troponin I Less than 0.010 ng/mL (< 0.028)
[2023-11-20 06:40] LABS: Anion Gap 11 mmol/L (10-20); BUN (Urea Nitrogen) 23 mg/dL (8.9-20.6); Calc. Creatinine Clearance 165 mL/min (70-130); Calcium 9.1 mg/dL (7.8-10.44); Carbon Dioxide 25 mmol/L (22-29); Chloride 109 mmol/L (98-107); Estimated GFR 95; Glucose 107 mg/dL (70-105); Magnesium 2.3 mg/dL (1.6-2.6); Sodium 141 mmol/L (136-145)
[2023-11-20] MEDS: Doxycycline 100 MG CAP PO SCH (08:29)
[2023-11-20] MEDS: Dapagliflozin Propanediol 10 MG TAB PO SCH (08:29)
[2023-11-20] MEDS: Magnesium 2 GM/50 ML(in water) 2 GM in Premix 1 BAG IVPB SCH (10:56)
[2023-11-20] MEDS: Potassium Chloride 20 MEQ TAB PO SCH (11:30)
[2023-11-20 12:27] VITALS: BP 118/72; TEMP 98
[2023-11-20] MEDS: Furosemide 40 MG (4 mL) VIAL SLOW IVP SCH (13:35)
[2023-11-21] MEDS ORDERED: Lisinopril 2.5 MG TAB PO SCH (09:00)
== END 2023-11-20 16:30 | disposition home or self-care (01) | DRG 193 ==
LOC: ERS 06:29 → SUATTDRO 06:29 → ERHOLD 09:12 → 2NO 16:21
PROVIDERS: ADMIT Internal Medicine; ATTEND Internal Medicine
DX: J18.9 Pneumonia, unspecified organism (principal); I50.23 Acute on chronic systolic (congestive) heart failure; J96.01 Acute respiratory failure with hypoxia; I42.9 Cardiomyopathy, unspecified; F14.10 Cocaine abuse, uncomplicated; Z88.0 Allergy status to penicillin; Z79.899 Other long term (current) drug therapy
CPT/HCPCS: 36415; 36416; 70450; 71045; 74177; 80048; 80053; 80306; 80307; 81001; 82805; 83605; 83690; 83735; 83880; 84145; 84443; 84484; 85025; 85610; 85730; 87040; 87070; 87205; 87428; 93005; 93798; 96374; 96375; J0456; J0692; J1940; J1956; J2185; J2272; J2405; J3475; J7050; Q9967

== ENCOUNTER 2023-12-11 11:39 | Emergency (ER) | payer OTHER ==
[2023-12-11] MEDS ORDERED: Lorazepam 2 MG/ML VIAL ONE (12:14)
[2023-12-11 12:25] LABS: #Basophils 0.06 10x3/uL (0.0-0.2); %Basophils 0.8 % (0.0-1.0); %Eosinophils 3.9 % (0.0-10.0); %Lymphocytes 26.9 % (21.0-51.0); %Monocytes 6.4 % (0.0-10.0); %Neutrophils 61.7 % (42.0-75.0); Hematocrit 41.2 % (42.0-52.0); Hemoglobin 13.6 g/dL (14.0-18.0); Mean Corpuscular Volume 84.8 fL (78.0-98.0); Mean Platelet Volume 8.2 fL (7.4-10.4); Platelet Count 248 10x3/uL (130-400); RBC Distribution Width 13.2 % (11.5-14.5); Red Blood Cell (RBC) Count 4.86 mill/uL (4.70-6.10)
[2023-12-11 12:39] LABS: ALT (SGPT) 20 U/L (8-55); AST (SGOT) 23 U/L (5-34); Albumin 3.7 g/dL (3.5-5.0); Alkaline Phosphatase 96 U/L (40-110); Anion Gap 14 mmol/L (10-20); BUN (Urea Nitrogen) 9 mg/dL (8.9-20.6); Bilirubin, Total 1.3 mg/dL (0.2-1.2); CK (CPK) 309 U/L (30-200); Calc. Creatinine Clearance 0 mL/min (70-130); Calcium 8.9 mg/dL (7.8-10.44); Carbon Dioxide 20 mmol/L (22-29); Chloride 107 mmol/L (98-107); Estimated GFR 103; Globulin 3.4 g/dL (2.4-3.5); Glucose 90 mg/dL (70-105); Potassium 3.6 mmol/L (3.5-5.1); Protein, Total 7.1 g/dL (6.0-8.3); Sodium 137 mmol/L (136-145)
[2023-12-11 12:44] LABS: Troponin I Less than 0.010 ng/mL (< 0.028)
== END 2023-12-11 12:56 | disposition home or self-care (01) ==
LOC: ERS 11:39
DX: F10.129 Alcohol abuse with intoxication, unspecified (principal); F41.1 Generalized anxiety disorder; F14.10 Cocaine abuse, uncomplicated; I50.9 Heart failure, unspecified; Z86.711 Personal history of pulmonary embolism
CPT/HCPCS: 36415; 71045; 80053; 82550; 83880; 84484; 85025; 93005; 96374; J2060

== ENCOUNTER 2023-12-13 05:43 | Emergency (ER) | payer OTHER | END 2023-12-13 06:22 | LOC: ERS 05:43 → EEVIPCON 05:43 → ERS 06:22 | DX: Z02.89 Encounter for other administrative examinations (principal); F15.120 Other stimulant abuse with intoxication, uncomplicated; I50.9 Heart failure, unspecified; Z79.899 Other long term (current) drug therapy; Z79.01 Long term (current) use of anticoagulants | CPT/HCPCS: 93005; 99284 ==